=== PATIENT | female | born 1940 | race Caucasian/White ===

== ENCOUNTER 2017-06-09 16:51 | Outpatient (CLI) | payer MEDICARE, OTHER ==
[2017-06-09 17:53] LABS: Anion Gap 12 mmol/L (10-20); BUN (Urea Nitrogen) 14 mg/dL (9.8-20.1); Calc. Creatinine Clearance 0 mL/min (70-130); Calcium 9.6 mg/dL (7.8-10.44); Carbon Dioxide 26 mmol/L (23-31); Chloride 103 mmol/L (98-107); Estimated GFR-MDRD 63; Glucose 127 mg/dL (83-110); Potassium 3.7 mmol/L (3.5-5.1); Sodium 137 mmol/L (136-145)
== END 2017-06-09 16:52 | disposition home or self-care (01) ==
LOC: MADLAB 16:51
PROVIDERS: ATTEND Internal Medicine Cardiovascular Disease
DX: I10 Essential (primary) hypertension (principal)
CPT/HCPCS: 36415

== ENCOUNTER 2020-07-24 14:21 | Emergency (ER) | payer MEDICARE, BC, OTHER ==
--- NOTE | 2020-07-24 15:04 | RAD ---
Chest one view HISTORY: Fever. COMPARISON: 04/12/2019. FINDINGS: Cardiac silhouette is magnified by projection. Pulmonary vasculature is unremarkable. Mediastinum is midline with aortic calcification. No lobar consolidation or evidence of pneumothorax. Degenerative changes throughout the thoracic spine. IMPRESSION : No active cardiopulmonary abnormalities are demonstrated. Atherosclerosis.
[2020-07-24 15:32] LABS: Hemoglobin 13.2 g/dL (12.0-16.0); Mean Corpuscular Hemoglobin 30.7 pg (27.0-31.0); Mean Platelet Volume 8.4 fL (7.4-10.4); Platelet Count 185 thou/uL (130-400); RBC Distribution Width 11.6 % (11.5-14.5); Red Blood Cell (RBC) Count 4.28 mill/uL (4.20-5.40)
[2020-07-24 15:33] LABS: Band 23 % (5-11); MDiff Complete? YES; Monocytes 9 % (0-10); Neutrophil 64 % (42-75); Platelet Morphology Comment Appears Adequate; RBC Morphology Normal; Reactive Lymphocytes 4 % (0-10)
[2020-07-24 15:34] LABS: ALT (SGPT) 22 U/L (8-55); AST (SGOT) 24 U/L (5-34); Alkaline Phosphatase 56 U/L (40-110); Anion Gap 18 mmol/L (10-20); BUN (Urea Nitrogen) 15 mg/dL (9.8-20.1); Bilirubin, Total 0.8 mg/dL (0.2-1.2); Calc. Creatinine Clearance 0 mL/min (70-130); Calcium 8.5 mg/dL (7.8-10.44); Carbon Dioxide 17 mmol/L (23-31); Chloride 96 mmol/L (98-107); Estimated GFR-MDRD 44; Globulin 2.6 g/dL (2.4-3.5); Glucose 150 mg/dL (83-110); Potassium 3.6 mmol/L (3.5-5.1); Protein, Total 6.6 g/dL (6.0-8.3); Sodium 127 mmol/L (136-145)
[2020-07-24] MEDS ORDERED: Ondansetron PF 4 MG/2 ML Vial ONE (16:13)
[2020-07-24] MEDS ORDERED: Sodium Chloride 0.9% 1,000 ML ONE (16:13)
[2020-07-24] MEDS ORDERED: Loperamide HCl 2 MG CAP ONE ×2 (16:13→16:14)
[2020-07-25 14:05] LABS: SARS-CoV-2 MS2 Positive; SARS-CoV-2 N Gene Negative; SARS-CoV-2 S Gene Negative; SARS-CoV-2 by NAA Not Detected (NotDetected); SARS-CoV-2 orf1ab Negative
== END 2020-07-24 16:35 | disposition home or self-care (01) ==
LOC: MADERS 14:21
DX: R19.7 Diarrhea, unspecified (principal); R63.0 Anorexia; Z20.828 Contact with and (suspected) exposure to other viral communicable diseases; R11.2 Nausea with vomiting, unspecified; E78.5 Hyperlipidemia, unspecified; I10 Essential (primary) hypertension; Z79.899 Other long term (current) drug therapy
CPT/HCPCS: 71045; 80053; 85025; 86140; 96361; 96374; 99284; U0003; 87635; J2405; J7050

== ENCOUNTER 2020-07-27 16:35 | Emergency (ER) | payer MEDICARE, BC ==
[2020-07-27] MEDS ORDERED: Sodium Chloride 0.9% 1,000 ML ONE ×2 (17:25→19:19)
[2020-07-27] MEDS ORDERED: Diphenoxylate HCl/Atropine Tablet ONE (17:27)
[2020-07-27 18:13] LABS: ALT (SGPT) 31 U/L (8-55); AST (SGOT) 39 U/L (5-34); Albumin 3.9 g/dL (3.4-4.8); Alkaline Phosphatase 57 U/L (40-110); Anion Gap 17 mmol/L (10-20); BUN (Urea Nitrogen) 38 mg/dL (9.8-20.1); Calc. Creatinine Clearance 0 mL/min (70-130); Calcium 7.7 mg/dL (7.8-10.44); Carbon Dioxide 15 mmol/L (23-31); Chloride 83 mmol/L (98-107); Estimated GFR-MDRD 18; Globulin 2.6 g/dL (2.4-3.5); Glucose 135 mg/dL (83-110); Hemoglobin 13.9 g/dL (12.0-16.0); Lipase 5 U/L (8-78); Mean Corpuscular HGB CONC 34.5 g/dL (32.0-36.0); Mean Corpuscular Hemoglobin 30.2 pg (27.0-31.0); Mean Corpuscular Volume 87.6 fL (78.0-98.0); Platelet Count 187 thou/uL (130-400); Protein, Total 6.5 g/dL (6.0-8.3); RBC Distribution Width 10.8 % (11.5-14.5); Red Blood Cell (RBC) Count 4.61 mill/uL (4.20-5.40); White Blood Cell (WBC) Count 10.9 thou/uL (4.8-10.8)
[2020-07-27 18:14] LABS: Band 10 % (5-11); Lymphocytes 6 % (21-51); MDiff Complete? YES; Monocytes 16 % (0-10); Myelocyte 1 % (0-0); Platelet Morphology Comment Appears Adequate; RBC Morphology Normal; Reactive Lymphocytes 5 % (0-10)
[2020-07-27 18:19] LABS: Potassium 2.4 mmol/L (3.5-5.1); Sodium 113 mmol/L (136-145)
[2020-07-27] MEDS ORDERED: NS 0.9% w/ 40 MEQ KCL 1,000 ML IV ONE (18:44)
[2020-07-27] MEDS ORDERED: Sodium Chloride 0.9% 100 ML ONE (19:19)
[2020-07-27] MEDS ORDERED: Piperacillin/Tazobactam 4.5 GM VIAL ONE (19:19)
== END 2020-07-27 20:02 | disposition short-term general hospital (02) ==
LOC: MADERS 16:35
DX: E87.1 Hypo-osmolality and hyponatremia (principal); K52.9 Noninfective gastroenteritis and colitis, unspecified; E87.6 Hypokalemia; E78.5 Hyperlipidemia, unspecified; E03.9 Hypothyroidism, unspecified; I10 Essential (primary) hypertension; J44.9 Chronic obstructive pulmonary disease, unspecified; G47.30 Sleep apnea, unspecified; F17.210 Nicotine dependence, cigarettes, uncomplicated; Z79.51 Long term (current) use of inhaled steroids; Z79.899 Other long term (current) drug therapy
CPT/HCPCS: 80053; 83605; 83690; 84484; 85025; 86140; 94760; 96361; 96365; 96368; J2543; J3480; J3490; J7050

== ENCOUNTER 2020-07-31 16:47 | Inpatient (IN) | payer MEDICARE, BC ==
[2020-07-31] MEDS ORDERED: Acetaminophen 325 MG TAB PO PRN (20:32)
[2020-07-31] MEDS ORDERED: Ondansetron ODT 4 MG TAB PO PRN (20:32)
[2020-07-31] MEDS ORDERED: diphenhydrAMINE 25 MG CAP PO PRN ×2 (20:34→21:12)
[2020-07-31] MEDS ORDERED: cloNIDine 0.1 MG TAB PO PRN (20:34)
[2020-07-31] MEDS ORDERED: Acetaminophen 500 MG TAB PO PRN ×2 (20:34→21:15)
[2020-07-31] MEDS ORDERED: Non-Formulary Item 1 EACH (Ibandronate Sodium [Boniva] 150 MG) PO SCH (20:45)
[2020-07-31] MEDS ORDERED: Senokot 8.6 MG TAB PO PRN (21:09)
[2020-07-31] MEDS: Carvedilol 6.25 MG TAB PO SCH (21:48)
[2020-07-31] MEDS: CeleCOXIB 100 MG CAP PO SCH (21:48)
[2020-07-31] MEDS: DorzolamidE/Timolol 2%/0.5% Ophth Soln 10 ml Bottle L EYE SCH (21:48)
[2020-07-31] MEDS: prednisoLONE 1% Ophth Susp 5 ml Bottle L EYE SCH (21:49)
[2020-07-31] MEDS: Ondansetron ODT 4 MG TAB PO SCH (21:49)
[2020-08-01] MEDS: Ipratropium Bromide 2.5 ml Neb NEB SCH ×4 (00:16→18:01)
[2020-08-01] MEDS: Carvedilol 6.25 MG TAB PO SCH ×2 (09:19→20:50)
[2020-08-01] MEDS: Cholecalciferol 1,000 UNITS (25 MCG) TAB PO SCH (09:19)
[2020-08-01] MEDS: Calcium Carbonate 600 MG + Vit D TAB PO SCH (09:19)
[2020-08-01] MEDS: Amlodipine 5 MG TAB PO SCH (09:19)
[2020-08-01] MEDS: CeleCOXIB 100 MG CAP PO SCH ×2 (09:19→20:51)
[2020-08-01] MEDS: Atorvastatin Calcium 40 MG TAB PO SCH (09:19)
[2020-08-01] MEDS: Methimazole 5 MG TAB PO SCH (09:20)
[2020-08-01] MEDS: prednisoLONE 1% Ophth Susp 5 ml Bottle L EYE SCH ×4 (09:20→20:49)
[2020-08-01] MEDS: Potassium Chloride 10 MEQ TAB PO SCH (09:20)
[2020-08-01] MEDS: Ondansetron ODT 4 MG TAB PO SCH ×3 (09:20→20:51)
[2020-08-01] MEDS: DorzolamidE/Timolol 2%/0.5% Ophth Soln 10 ml Bottle L EYE SCH ×2 (09:20→20:50)
[2020-08-01] MEDS: Multivitamin W/ Minerals 1 TAB PO SCH (09:20)
[2020-08-01] MEDS: Clopidogrel Bisulfate 75 MG TAB PO SCH (09:20)
--- NOTE | 2020-08-01 10:26 | HP ---
PRIMARY CARE PHYSICIAN: Out of town. REASON FOR ADMISSION: For skilled rehabilitation at [facility] status post recent hospitalization for hyponatremia and severe diarrhea. HISTORY OF PRESENT ILLNESS: The patient is an 80-year-old female, who presented to the emergency room on the 27 of July due to persistent diarrhea, fatigue, and nausea. The patient does have a history of right leg fracture, and hyperthyroidism. The patient stated she had eye surgery a couple of days prior to admission and she had gone out to eat and she stated that the food did not taste right, so she went to see her PCP due to nausea, vomiting, and diarrhea, who prescribed Cipro for the diarrhea. The patient noted the diarrhea persisted and she continued to get extremely weak, so she went to the emergency room. In the emergency room, the patient was noted to have a sodium of 113. She was given IV fluids and admitted to the ICU for further workup. The patient did have stool cultures which were negative for C. diff, ova, and parasites, and it was noted diarrhea was most likely caused by Cipro rather than an infectious cause. The patient's sodium rapidly corrected to 127 the day after admission and IV fluid was changed to D5W to avoid over-correction and on the , her sodium improved to 132. The patient's sodium on the on the day of discharge from [place] in [place] was 131. She was noted to be very deconditioned and the decision was made for her to start physical therapy prior to discharge back to home. The patient in the hospital was also noted to have mildly elevated LFTs and this is to be repeated as an outpatient. During the hospitalization in [place], the patient reported one episode of mild possible dark stools. She states she had a colonoscopy done recently and did not note any abnormality. The patient denies any abdominal pain, nausea, vomiting, diarrhea, dizziness, or lightheadedness. She states last episode of diarrhea and vomiting was prior to hospital admission. The decision was made by the patient and her daughter to be transferred here to [facility] for physical therapy prior to discharge back to home. Upon evaluation of the patient today, she stated she was tired from transportation down to [place]. She is eager to go back to her home. She states prior to hospital admission, she was doing outpatient physical therapy in [facility], but she would like to continue that. She denies any chest pain, any shortness of breath, any palpitation, dizziness, any fever, any nausea or vomiting. PAST MEDICAL HISTORY: Hypertension, hyperthyroidism, mixed hyperlipidemia, sleep apnea, chronic obstructive pulmonary disease. PAST SURGICAL HISTORY: Aneurysm of the optic artery, post cholecystectomy, hysterectomy, bilateral carpal tunnel surgery, left ankle surgery, bilateral knee replacements, right ORIF, left lumpectomy of the breast, brain aneurysm clip, blindness of the right eye. CODE STATUS: The patient is a full code. SOCIAL HISTORY: The patient does not drink. She does smoke one pack of cigarettes daily. She denies any illicit drug use. She lives with her family. ALLERGIES: HYDROCHLOROTHIAZIDE AND CONTRAST IODINE. REVIEW OF SYSTEMS: GENERAL: The patient complains of mild weakness. CHEST: The patient denies any chest pain, shortness of breath, or palpitation. RESPIRATORY: Denies any cough or wheezing. GASTROINTESTINAL: Denies any nausea, vomiting, diarrhea, or constipation. NEUROLOGIC: The patient complains of weakness and gait instability. PSYCHIATRY: The patient denies any confusion, hallucinations, or delusion. SKIN: The patient denies any rashes. MEDICATIONS: 1. Amlodipine 5 mg daily. 2. Lipitor 40 daily. 3. Coreg 6.25 b.i.d. 4. Celebrex 200 b.i.d. 5. Vitamin D3 of 2000 units daily. 6. Clonidine 0.1 p.r.n. SBP greater than 180. 7. Plavix 75 daily. 8. Atrovent 2.5 neb q.6. 9. Multivitamin one daily. 10. Methimazole 10 daily. 11. Myrbetriq ER 50 mg q.p.m. 12. Protonix 40 daily. 13. Potassium chloride 5 mEq daily. 14. Prednisolone acetate 1% ophthalmic solution b.i.d. 15. Senokot 6 tabs p.o. at bedtime p.r.n. constipation. 16. Tylenol PM p.r.n. insomnia. PHYSICAL EXAMINATION: VITAL SIGNS: Temperature 98.6, pulse 75, respiration 19, O2 saturation 94% on room air, blood pressure 130/74. GENERAL: The patient is alert, awake, and oriented x3. No apparent distress, lying comfortably in bed. HEENT: Normocephalic, atraumatic. Pupils are equal, round, reactive. Extraocular movement intact. Nonicteric sclerae. Well-injected conjunctivae. Oral mucous membrane is moist. Nasal mucosa normal. NECK: Supple. No JVD. No adenopathy. Thyroid is palpable, midline. Trachea is midline. No supraclavicular lymphadenopathy. HEART: S1, S2 regular. No murmurs, no gallops, no friction rub. LUNGS: Clear to auscultation bilaterally. No wheezing, no rhonchi, no crackles. ABDOMEN: Positive bowel sounds. Nontender and nondistended. EXTREMITIES: No edema. No cyanosis. NEURO: Cranial nerves 2 through 12 grossly intact. ASSESSMENT: 1. Physical deconditioning. 2. Hyponatremia secondary to diarrhea. 3. Acute kidney injury, improving. 4. Hypertension. 5. Gait instability. PLAN: The patient is an 80-year-old female, who is being admitted to [facility] for skilled rehabilitation secondary to hyponatremia due to severe diarrhea. We will consult Physical Therapy to help with strengthening and gait and will consult Occupational Therapy to help with activities of daily living prior to discharge back to home. We will repeat CBC and CMP in a week. We will resume home medications. We will monitor the patient closely for any GI bleed or dark stools. We will place the patient on Protonix for GI prophylaxis and SCD for DVT prophylaxis. Estimated length of stay is 1 to 2 weeks. Job ID: [id number] [facility]
[2020-08-02] MEDS: Ipratropium Bromide 2.5 ml Neb NEB SCH ×4 (00:47→17:16)
[2020-08-02] MEDS: Methimazole 5 MG TAB PO SCH (08:09)
[2020-08-02] MEDS: Cholecalciferol 1,000 UNITS (25 MCG) TAB PO SCH (08:09)
[2020-08-02] MEDS: Calcium Carbonate 600 MG + Vit D TAB PO SCH (08:10)
[2020-08-02] MEDS: Potassium Chloride 10 MEQ TAB PO SCH (08:10)
[2020-08-02] MEDS: Clopidogrel Bisulfate 75 MG TAB PO SCH (08:10)
[2020-08-02] MEDS: Amlodipine 5 MG TAB PO SCH (08:10)
[2020-08-02] MEDS: Carvedilol 6.25 MG TAB PO SCH ×2 (08:11→20:14)
[2020-08-02] MEDS: CeleCOXIB 100 MG CAP PO SCH ×2 (08:11→20:13)
[2020-08-02] MEDS: Atorvastatin Calcium 40 MG TAB PO SCH (08:11)
[2020-08-02] MEDS: Ondansetron ODT 4 MG TAB PO SCH ×3 (08:11→20:14)
[2020-08-02] MEDS: Multivitamin W/ Minerals 1 TAB PO SCH (08:11)
[2020-08-02] MEDS: DorzolamidE/Timolol 2%/0.5% Ophth Soln 10 ml Bottle L EYE SCH ×2 (08:12→20:15)
[2020-08-02] MEDS: prednisoLONE 1% Ophth Susp 5 ml Bottle L EYE SCH ×4 (08:13→20:16)
[2020-08-02] MEDS: DEXILANT 60 MG PO SCH (09:30)
[2020-08-02 12:54] VITALS: BMI 26.9
[2020-08-03] MEDS: Ipratropium Bromide 2.5 ml Neb NEB SCH ×3 (00:12→12:57)
[2020-08-03 05:38] LABS: #Basophils 0.1 thou/uL (0.0-0.2); #Eosinphils 0.3 thou/uL (0.0-0.7); #Monocytes 1.4 thou/uL (0.11-0.59); #Neutrophils 9.4 thou/uL (1.40-6.50); %Basophils 0.8 % (0.0-1.0); %Eosinophils 2.4 % (0.0-10.0); %Monocytes 9.7 % (0.0-10.0); %Neutrophils 66.1 % (42.0-75.0); Hemoglobin 10.1 g/dL (12.0-16.0); Mean Corpuscular Hemoglobin 31.2 pg (27.0-31.0); Mean Corpuscular Volume 91.7 fL (78.0-98.0); Mean Platelet Volume 5.9 fL (7.4-10.4); Platelet Count 248 thou/uL (130-400); RBC Distribution Width 12.8 % (11.5-14.5); Red Blood Cell (RBC) Count 3.25 mill/uL (4.20-5.40); White Blood Cell (WBC) Count 14.2 thou/uL (4.8-10.8)
[2020-08-03 05:55] LABS: ALT (SGPT) 26 U/L (8-55); AST (SGOT) 16 U/L (5-34); Albumin 3.1 g/dL (3.4-4.8); Alkaline Phosphatase 50 U/L (40-110); Anion Gap 11 mmol/L (10-20); BUN (Urea Nitrogen) 8 mg/dL (9.8-20.1); Bilirubin, Total 0.6 mg/dL (0.2-1.2); Calc. Creatinine Clearance 75 mL/min (70-130); Calcium 8.4 mg/dL (7.8-10.44); Carbon Dioxide 24 mmol/L (23-31); Chloride 104 mmol/L (98-107); Estimated GFR-MDRD 80; Globulin 1.8 g/dL (2.4-3.5); Glucose 95 mg/dL (83-110); Protein, Total 4.9 g/dL (6.0-8.3); Sodium 135 mmol/L (136-145)
[2020-08-03 07:43] VITALS: BP 122/52; TEMP 98.1
[2020-08-03] MEDS: Amlodipine 5 MG TAB PO SCH (08:24)
[2020-08-03] MEDS: CeleCOXIB 100 MG CAP PO SCH (08:24)
[2020-08-03] MEDS: Cholecalciferol 1,000 UNITS (25 MCG) TAB PO SCH (08:25)
[2020-08-03] MEDS: Calcium Carbonate 600 MG + Vit D TAB PO SCH (08:26)
[2020-08-03] MEDS: Clopidogrel Bisulfate 75 MG TAB PO SCH (08:26)
[2020-08-03] MEDS: Potassium Chloride 10 MEQ TAB PO SCH (08:26)
[2020-08-03] MEDS: Multivitamin W/ Minerals 1 TAB PO SCH (08:27)
[2020-08-03] MEDS: Ondansetron ODT 4 MG TAB PO SCH (08:27)
[2020-08-03] MEDS: Methimazole 5 MG TAB PO SCH (08:27)
[2020-08-03] MEDS: Atorvastatin Calcium 40 MG TAB PO SCH (08:28)
[2020-08-03] MEDS: Carvedilol 6.25 MG TAB PO SCH (08:28)
[2020-08-03] MEDS: prednisoLONE 1% Ophth Susp 5 ml Bottle L EYE SCH ×2 (08:31→12:58)
[2020-08-03] MEDS: DorzolamidE/Timolol 2%/0.5% Ophth Soln 10 ml Bottle L EYE SCH (08:31)
[2020-08-03] MEDS: DEXILANT 60 MG PO SCH (10:04)
--- NOTE | 2020-08-04 03:57 | DIS ---
DATE OF ADMISSION: 07/31/2020 DATE OF DISCHARGE: 08/03/2020 DISCHARGING PHYSICIAN: Keven Ojeda MD DISCHARGE DIAGNOSES: 1. Physical deconditioning, improved. 2. Hyponatremia, resolved. 3. Transaminitis, resolved. 4. Acute kidney injury, improved. 5. Gait instability, improving. DISCHARGE DISPOSITION: Back to home with her family. DISCHARGE ACTIVITIES: Follow up with primary care physician within 1 week. The patient to have a CBC repeated within 1 week. The patient to resume physical therapy at [facility]. The patient to ambulate with a 4-wheeled walker at all times. BRIEF HOSPITAL COURSE: Ms. Castellanos is an 80-year-old female, who was admitted to [place] in [facility] on July 27 due to persistent diarrhea, nausea, and fatigue. The patient was noted to have a sodium of 113. In the emergency room, she was given IV fluids and admitted to the ICU for further workup. The patient's diarrhea and nausea resolved during hospitalization and her sodium on date of discharge in [place] was 131. Due to condition, patient was physically deconditioned with a slow gait and the decision was made to transfer the patient to skilled rehab for physical therapy prior to discharge back to home. Upon admission here on the 31 of July, the patient was able to be evaluated by Physical Therapy and Occupational Therapy. She stated that prior to hospitalization, she was able to ambulate without a walker or a cane and now she is using a walker for safety reasons. The patient was seen here throughout and participated in physical therapy. She slowly improved. On day of discharge on August 03, she was able to ambulate 300 foot with a rolling walker. She was making significant progress but working towards the goals for a safe return home. Patient had voiced since the day of admission that she wanted to be discharged home and continue therapy as an outpatient as she was doing prior to hospitalization. On day of discharge, August 03, sodium had increased to 135. Kidney function was much better. BUN of 8, creatinine of 0.7, GFR of 80. Her liver enzymes were back to normal and WBC was unfortunately 14.2, hemoglobin 10.1, and hematocrit of 29.7. The patient denies any acute GI bleeding, dark stools, or any form of bleeding. The patient was adamant that she wanted to go home today the and she was discharged home with her family in a stable condition. The patient was noted to notify her PCP to get a CBC done within 1 week. DISCHARGE VITAL SIGNS: Temperature 98.1, pulse 95, respirations 18, O2 saturation 96% on room air, blood pressure 122/52. Job ID: [id number] MTDD
== END 2020-08-03 15:50 | disposition home or self-care (01) | DRG 641 ==
LOC: MADMS 16:47
PROVIDERS: ADMIT Family Medicine; ATTEND Family Medicine
DX: E87.1 Hypo-osmolality and hyponatremia (principal); N17.9 Acute kidney failure, unspecified; R53.81 Other malaise; R19.7 Diarrhea, unspecified; E05.90 Thyrotoxicosis, unspecified without thyrotoxic crisis or storm; I10 Essential (primary) hypertension; F17.210 Nicotine dependence, cigarettes, uncomplicated; J44.9 Chronic obstructive pulmonary disease, unspecified; E78.2 Mixed hyperlipidemia; G47.30 Sleep apnea, unspecified; R26.9 Unspecified abnormalities of gait and mobility; Z96.653 Presence of artificial knee joint, bilateral; Z90.49 Acquired absence of other specified parts of digestive tract; Z98.890 Other specified postprocedural states; Z88.8 Allergy status to other drugs, medicaments and biological substances; Z79.899 Other long term (current) drug therapy; Z79.01 Long term (current) use of anticoagulants
CPT/HCPCS: 80053; 85025; 94640; Q0162

== ENCOUNTER 2020-08-13 10:22 | Outpatient (CLI) | payer MEDICARE, BC | END 2020-08-13 10:23 | disposition home or self-care (01) | LOC: MADLAB 10:22 | PROVIDERS: ATTEND Internal Medicine Cardiovascular Disease | DX: E78.00 Pure hypercholesterolemia, unspecified (principal) | CPT/HCPCS: 36415; 80061 ==

== ENCOUNTER 2022-09-06 19:27 | Emergency (ER) | payer OTHER, BC ==
[~2022-09-06 19:27] MED LIST: Sodium Chloride 0.9% 500 ML BAG ONE
[2022-09-06 20:22] LABS: #Eosinphils 0.1 thou/uL (0.0-0.7); #Lymphocytes 0.5 thou/uL (1.20-3.40); #Monocytes 0.5 thou/uL (0.11-0.59); #Neutrophils 10.9 thou/uL (1.40-6.50); %Basophils 0.2 % (0.0-1.0); %Eosinophils 0.5 % (0.0-10.0); %Lymphocytes 4.3 % (21.0-51.0); %Monocytes 3.9 % (0.0-10.0); %Neutrophils 91.1 % (42.0-75.0); Hemoglobin 13.1 g/dL (12.0-16.0); Mean Corpuscular HGB CONC 33.5 g/dL (32.0-36.0); Mean Corpuscular Hemoglobin 32.4 pg (27.0-31.0); Mean Corpuscular Volume 96.7 fL (78.0-98.0); Platelet Count 200 thou/uL (130-400); RBC Distribution Width 12.4 % (11.5-14.5); Red Blood Cell (RBC) Count 4.05 mill/uL (4.20-5.40); White Blood Cell (WBC) Count 11.9 thou/uL (4.8-10.8)
[2022-09-06] MEDS ORDERED: Ondansetron PF 4 MG/2 ML Vial ONE (20:23)
[2022-09-06 20:42] LABS: ALT (SGPT) 21 U/L (8-55); AST (SGOT) 24 U/L (5-34); Albumin 3.8 g/dL (3.4-4.8); Alkaline Phosphatase 46 U/L (40-110); Anion Gap 10 mmol/L (10-20); BUN (Urea Nitrogen) 12 mg/dL (9.8-20.1); Bilirubin, Total 0.7 mg/dL (0.2-1.2); Calc. Creatinine Clearance 0 mL/min (70-130); Calcium 8.6 mg/dL (7.8-10.44); Carbon Dioxide 24 mmol/L (23-31); Chloride 101 mmol/L (98-107); Estimated GFR 86; Globulin 2.5 g/dL (2.4-3.5); Glucose 126 mg/dL (83-110); Lipase 11 U/L (8-78); Magnesium 1.7 mg/dL (1.6-2.6); Potassium 3.8 mmol/L (3.5-5.1); Protein, Total 6.3 g/dL (5.8-8.1); Sodium 131 mmol/L (136-145)
[2022-09-06 22:11] LABS: Bilirubin Negative (Negative); Blood, Urine Negative (Negative); Clarity Clear (Clear); Glucose, Urine (Dipstick) Negative (Negative); Ketone, Urine 40 mg/dL (Negative); Leukocyte Trace (Negative); Nitrite Negative (Negative); Protein, Urine (Dipstick) Negative (Neg-Trace); Urobilinogen 0.2 mg/dL (Less than 2); pH, Urine 6.5 (5.0-9.0)
[2022-09-06 22:14] LABS: Squamous Epithelial 0-3 HPF (0-3)
== END 2022-09-06 22:42 | disposition home or self-care (01) ==
LOC: MADERS 19:27
DX: A08.4 Viral intestinal infection, unspecified (principal); I10 Essential (primary) hypertension; E05.90 Thyrotoxicosis, unspecified without thyrotoxic crisis or storm; E78.5 Hyperlipidemia, unspecified; G47.30 Sleep apnea, unspecified; J44.9 Chronic obstructive pulmonary disease, unspecified; F17.210 Nicotine dependence, cigarettes, uncomplicated; Z79.899 Other long term (current) drug therapy
CPT/HCPCS: 80053; 81003; 81015; 83690; 83735; 83880; 85025; 87086; 93005; 96374; J2405; J7030

== ENCOUNTER 2023-04-24 18:18 | Inpatient (IN) | payer MEDICARE, BC ==
[2023-04-24] MEDS ORDERED: diphenhydrAMINE 25 MG CAP PO PRN (20:37)
[2023-04-24] MEDS ORDERED: cloNIDine 0.1 MG TAB PO PRN (20:37)
[2023-04-24] MEDS ORDERED: Acetaminophen 650 MG Suppository PR PRN (20:43)
[2023-04-24] MEDS: Sodium Chloride 1 GM TAB PO SCH (21:29)
[2023-04-24] MEDS: CeleCOXIB 100 MG CAP PO SCH (21:29)
[2023-04-24] MEDS: Carvedilol 3.125 MG TAB PO SCH (21:30)
[2023-04-24] MEDS: Zolpidem Tartrate 5 MG TAB PO PRN (21:40)
[2023-04-24] MEDS: HYDROcodone/Acetaminophen 5/325 mg Tablet PO PRN (21:40)
[2023-04-24] MEDS: Exemestane 25 MG TAB PO SCH (21:52)
[2023-04-24] MEDS: Ipratropium/Albuterol 3 ML NEB NEB SCH (23:49)
[2023-04-25] MEDS: Ipratropium/Albuterol 3 ML NEB NEB SCH ×4 (05:22→23:12)
[2023-04-25] MEDS ORDERED: Ipratropium Bromide 2.5 ml Neb NEB SCH (06:00)
[2023-04-25] MEDS: Methimazole 5 MG TAB PO SCH (08:24)
[2023-04-25] MEDS: Gabapentin 300 MG CAP PO SCH (08:24)
[2023-04-25] MEDS: Sodium Chloride 1 GM TAB PO SCH ×3 (08:24→20:53)
[2023-04-25] MEDS: Multivitamin W/ Minerals 1 TAB PO SCH (08:25)
[2023-04-25] MEDS: Atorvastatin Calcium 40 MG TAB PO SCH (08:25)
[2023-04-25] MEDS: CeleCOXIB 100 MG CAP PO SCH ×2 (08:25→20:53)
[2023-04-25] MEDS: Clopidogrel Bisulfate 75 MG TAB PO SCH (08:25)
[2023-04-25] MEDS: Lisinopril 20 MG TAB PO SCH (08:26)
[2023-04-25] MEDS: Calcium Carbonate 600 MG + Vit D TAB PO SCH (08:26)
[2023-04-25] MEDS: Escitalopram Oxalate 10 mg Tablet PO SCH (08:26)
[2023-04-25] MEDS: Lidocaine 4% Patch TD SCH (08:26)
[2023-04-25] MEDS: Cholecalciferol 1,000 UNITS (25 MCG) TAB PO SCH (08:26)
[2023-04-25] MEDS: Carvedilol 3.125 MG TAB PO SCH ×2 (08:26→20:53)
[2023-04-25] MEDS: HYDROcodone/Acetaminophen 5/325 mg Tablet PO PRN ×2 (13:09→21:58)
[2023-04-25] MEDS: Exemestane 25 MG TAB PO SCH (20:55)
[2023-04-25] MEDS: Zolpidem Tartrate 5 MG TAB PO PRN (21:57)
[2023-04-26] MEDS: Ipratropium/Albuterol 3 ML NEB NEB SCH ×4 (05:06→23:44)
[2023-04-26] MEDS: traMADol HCl 50 MG TAB PO PRN ×2 (05:07→11:57)
[2023-04-26] MEDS: Multivitamin W/ Minerals 1 TAB PO SCH (09:15)
[2023-04-26] MEDS: Atorvastatin Calcium 40 MG TAB PO SCH (09:15)
[2023-04-26] MEDS: Carvedilol 3.125 MG TAB PO SCH ×2 (09:15→20:14)
[2023-04-26] MEDS: Methimazole 5 MG TAB PO SCH (09:15)
[2023-04-26] MEDS: Clopidogrel Bisulfate 75 MG TAB PO SCH (09:15)
[2023-04-26] MEDS: Escitalopram Oxalate 10 mg Tablet PO SCH (09:16)
[2023-04-26] MEDS: CeleCOXIB 100 MG CAP PO SCH ×2 (09:16→20:15)
[2023-04-26] MEDS: Lisinopril 20 MG TAB PO SCH (09:17)
[2023-04-26] MEDS: Gabapentin 300 MG CAP PO SCH (09:17)
[2023-04-26] MEDS: Sodium Chloride 1 GM TAB PO SCH ×3 (09:17→20:14)
[2023-04-26] MEDS: Calcium Carbonate 600 MG + Vit D TAB PO SCH (09:19)
[2023-04-26] MEDS: Cholecalciferol 1,000 UNITS (25 MCG) TAB PO SCH (09:19)
[2023-04-26] MEDS: Lidocaine 4% Patch TD SCH (09:26)
[2023-04-26] MEDS: Bisacodyl 5 MG TAB PO PRN (11:57)
[2023-04-26] MEDS ORDERED: traMADol HCl 50 MG TAB PO PRN (11:58)
[2023-04-26] MEDS: Acetaminophen 325 MG TAB PO PRN (12:16)
[2023-04-26] MEDS: Ondansetron ODT 4 MG TAB PO PRN (14:41)
[2023-04-26] MEDS: HYDROcodone/Acetaminophen 5/325 mg Tablet PO PRN (20:14)
[2023-04-26] MEDS: Zolpidem Tartrate 5 MG TAB PO PRN (20:15)
[2023-04-26] MEDS: Exemestane 25 MG TAB PO SCH (20:16)
[2023-04-27] MEDS: Ipratropium/Albuterol 3 ML NEB NEB SCH ×4 (05:35→23:42)
[2023-04-27] MEDS: CeleCOXIB 100 MG CAP PO SCH ×2 (08:26→20:03)
[2023-04-27] MEDS: Calcium Carbonate 600 MG + Vit D TAB PO SCH (08:27)
[2023-04-27] MEDS: Cholecalciferol 1,000 UNITS (25 MCG) TAB PO SCH (08:27)
[2023-04-27] MEDS: Carvedilol 3.125 MG TAB PO SCH ×2 (08:27→20:04)
[2023-04-27] MEDS: Lisinopril 20 MG TAB PO SCH (08:27)
[2023-04-27] MEDS: Sodium Chloride 1 GM TAB PO SCH ×3 (08:27→20:04)
[2023-04-27] MEDS: Methimazole 5 MG TAB PO SCH (08:28)
[2023-04-27] MEDS: Escitalopram Oxalate 10 mg Tablet PO SCH (08:29)
[2023-04-27] MEDS: Multivitamin W/ Minerals 1 TAB PO SCH (08:29)
[2023-04-27] MEDS: Atorvastatin Calcium 40 MG TAB PO SCH (08:29)
[2023-04-27] MEDS: Clopidogrel Bisulfate 75 MG TAB PO SCH (08:29)
[2023-04-27] MEDS: Polyethylene Glycol 3350 17 GM Packet PO SCH (08:30)
[2023-04-27] MEDS: Gabapentin 300 MG CAP PO SCH (08:30)
[2023-04-27] MEDS: Lidocaine 4% Patch TD SCH (08:30)
[2023-04-27] MEDS: Ondansetron ODT 4 MG TAB PO PRN (17:35)
[2023-04-27] MEDS: Bisacodyl 5 MG TAB PO PRN (17:35)
[2023-04-27] MEDS: Exemestane 25 MG TAB PO SCH ×2 (20:05→20:09)
[2023-04-27] MEDS: Zolpidem Tartrate 5 MG TAB PO PRN (21:32)
[2023-04-27] MEDS: HYDROcodone/Acetaminophen 5/325 mg Tablet PO PRN (21:32)
[2023-04-28 05:19] LABS: #Basophils 0.1 thou/uL (0.0-0.2); #Eosinphils 0.5 thou/uL (0.0-0.7); #Lymphocytes 2.4 thou/uL (1.20-3.40); #Monocytes 0.9 thou/uL (0.11-0.59); %Basophils 0.9 % (0.0-1.0); %Eosinophils 4.3 % (0.0-10.0); %Monocytes 7.5 % (0.0-10.0); %Neutrophils 67.3 % (42.0-75.0); Hemoglobin 8.6 g/dL (12.0-16.0); Mean Corpuscular HGB CONC 33.4 g/dL (32.0-36.0); Mean Corpuscular Hemoglobin 33.1 pg (27.0-31.0); Mean Corpuscular Volume 99.2 fl (78.0-98.0); Mean Platelet Volume 7.3 fL (7.4-10.4); Platelet Count 242 10x3/uL (130-400); RBC Distribution Width 14.5 % (11.5-14.5); White Blood Cell (WBC) Count 11.9 10x3/uL (4.8-10.8)
[2023-04-28] MEDS: Ipratropium/Albuterol 3 ML NEB NEB SCH ×3 (05:23→17:57)
[2023-04-28 05:38] LABS: ALT (SGPT) 11 U/L (8-55); AST (SGOT) 15 U/L (5-34); Albumin 3.1 g/dL (3.4-4.8); Alkaline Phosphatase 89 U/L (40-110); Anion Gap 9 mmol/L (10-20); BUN (Urea Nitrogen) 27 mg/dL (9.8-20.1); Bilirubin, Total 0.9 mg/dL (0.2-1.2); Calc. Creatinine Clearance 56 mL/min (70-130); Calcium 9.2 mg/dL (7.8-10.44); Carbon Dioxide 24 mmol/L (23-31); Chloride 106 mmol/L (98-107); Estimated GFR 75; Globulin 1.9 g/dL (2.4-3.5); Glucose 100 mg/dL (83-110); Potassium 5.2 mmol/L (3.5-5.1); Sodium 134 mmol/L (136-145)
[2023-04-28] MEDS: Polyethylene Glycol 3350 17 GM Packet PO SCH (09:00)
[2023-04-28] MEDS: Sodium Chloride 1 GM TAB PO SCH ×3 (09:00→21:50)
[2023-04-28] MEDS: Gabapentin 300 MG CAP PO SCH (09:00)
[2023-04-28] MEDS: Lidocaine 4% Patch TD SCH (09:00)
[2023-04-28] MEDS: Cholecalciferol 1,000 UNITS (25 MCG) TAB PO SCH (09:01)
[2023-04-28] MEDS: Methimazole 5 MG TAB PO SCH (09:01)
[2023-04-28] MEDS: Carvedilol 3.125 MG TAB PO SCH ×2 (09:01→21:50)
[2023-04-28] MEDS: Escitalopram Oxalate 10 mg Tablet PO SCH (09:02)
[2023-04-28] MEDS: Atorvastatin Calcium 40 MG TAB PO SCH (09:02)
[2023-04-28] MEDS: Clopidogrel Bisulfate 75 MG TAB PO SCH (09:03)
[2023-04-28] MEDS: CeleCOXIB 100 MG CAP PO SCH ×2 (09:03→21:51)
[2023-04-28] MEDS: Calcium Carbonate 600 MG + Vit D TAB PO SCH (09:03)
[2023-04-28] MEDS: Multivitamin W/ Minerals 1 TAB PO SCH (09:03)
[2023-04-28] MEDS: Lisinopril 20 MG TAB PO SCH (09:04)
[2023-04-28] MEDS: Exemestane 25 MG TAB PO SCH (21:51)
[2023-04-28] MEDS: Bisacodyl 5 MG TAB PO PRN (21:52)
[2023-04-28] MEDS: HYDROcodone/Acetaminophen 5/325 mg Tablet PO PRN (21:52)
[2023-04-28] MEDS: Zolpidem Tartrate 5 MG TAB PO PRN (21:52)
[2023-04-29] MEDS: Ipratropium/Albuterol 3 ML NEB NEB SCH ×4 (00:20→17:44)
[2023-04-29] MEDS: Lidocaine 4% Patch TD SCH (09:37)
[2023-04-29] MEDS: Gabapentin 300 MG CAP PO SCH (09:38)
[2023-04-29] MEDS: Sodium Chloride 1 GM TAB PO SCH ×3 (09:38→20:46)
[2023-04-29] MEDS: Calcium Carbonate 600 MG + Vit D TAB PO SCH (09:38)
[2023-04-29] MEDS: Polyethylene Glycol 3350 17 GM Packet PO SCH (09:38)
[2023-04-29] MEDS: Lisinopril 20 MG TAB PO SCH (09:38)
[2023-04-29] MEDS: Cholecalciferol 1,000 UNITS (25 MCG) TAB PO SCH (09:39)
[2023-04-29] MEDS: Methimazole 5 MG TAB PO SCH (09:39)
[2023-04-29] MEDS: Escitalopram Oxalate 10 mg Tablet PO SCH (09:39)
[2023-04-29] MEDS: CeleCOXIB 100 MG CAP PO SCH ×2 (09:42→20:47)
[2023-04-29] MEDS: Carvedilol 3.125 MG TAB PO SCH ×2 (09:42→20:49)
[2023-04-29] MEDS: Clopidogrel Bisulfate 75 MG TAB PO SCH (09:42)
[2023-04-29] MEDS: Atorvastatin Calcium 40 MG TAB PO SCH (09:42)
[2023-04-29] MEDS: Multivitamin W/ Minerals 1 TAB PO SCH (10:08)
[2023-04-29] MEDS: Fleet Saline Enema 133 ML BOT PR PRN (10:57)
[2023-04-29] MEDS: Exemestane 25 MG TAB PO SCH (20:48)
[2023-04-30] MEDS: Ipratropium/Albuterol 3 ML NEB NEB SCH ×4 (00:20→17:29)
[2023-04-30] MEDS: Zolpidem Tartrate 5 MG TAB PO PRN (00:58)
[2023-04-30] MEDS: HYDROcodone/Acetaminophen 5/325 mg Tablet PO PRN ×2 (00:58→07:44)
[2023-04-30] MEDS: CeleCOXIB 100 MG CAP PO SCH ×2 (08:54→20:34)
[2023-04-30] MEDS: Sodium Chloride 1 GM TAB PO SCH ×3 (08:54→20:34)
[2023-04-30] MEDS: Methimazole 5 MG TAB PO SCH (08:55)
[2023-04-30] MEDS: Clopidogrel Bisulfate 75 MG TAB PO SCH (08:55)
[2023-04-30] MEDS: Lisinopril 20 MG TAB PO SCH (08:55)
[2023-04-30] MEDS: Multivitamin W/ Minerals 1 TAB PO SCH (08:55)
[2023-04-30] MEDS: Cholecalciferol 1,000 UNITS (25 MCG) TAB PO SCH (08:55)
[2023-04-30] MEDS: Atorvastatin Calcium 40 MG TAB PO SCH (08:55)
[2023-04-30] MEDS: Carvedilol 3.125 MG TAB PO SCH ×2 (08:55→20:35)
[2023-04-30] MEDS: Calcium Carbonate 600 MG + Vit D TAB PO SCH (08:55)
[2023-04-30] MEDS: Gabapentin 300 MG CAP PO SCH (08:55)
[2023-04-30] MEDS: Escitalopram Oxalate 10 mg Tablet PO SCH (08:55)
[2023-04-30] MEDS: Lidocaine 4% Patch TD SCH (08:59)
[2023-04-30] MEDS: Polyethylene Glycol 3350 17 GM Packet PO SCH (08:59)
[2023-04-30] MEDS: Bisacodyl 5 MG TAB PO PRN (17:29)
[2023-04-30] MEDS: Fleet Saline Enema 133 ML BOT PR PRN (19:15)
[2023-04-30] MEDS: Acetaminophen 325 MG TAB PO PRN (19:33)
[2023-04-30] MEDS: Exemestane 25 MG TAB PO SCH (20:34)
[2023-04-30] MEDS: Megestrol Acetate 40 MG TAB PO SCH (20:35)
[2023-05-01] MEDS: Ipratropium/Albuterol 3 ML NEB NEB SCH ×5 (00:08→22:54)
[2023-05-01] MEDS: Lantiseptic Ointment 130 GM JAR TOP SCH ×3 (05:25→20:54)
[2023-05-01] MEDS: Cholecalciferol 1,000 UNITS (25 MCG) TAB PO SCH (09:04)
[2023-05-01] MEDS: Clopidogrel Bisulfate 75 MG TAB PO SCH (09:05)
[2023-05-01] MEDS: Calcium Carbonate 600 MG + Vit D TAB PO SCH (09:05)
[2023-05-01] MEDS: Multivitamin W/ Minerals 1 TAB PO SCH (09:06)
[2023-05-01] MEDS: CeleCOXIB 100 MG CAP PO SCH ×2 (09:06→20:50)
[2023-05-01] MEDS: Carvedilol 3.125 MG TAB PO SCH ×2 (09:07→20:52)
[2023-05-01] MEDS: Atorvastatin Calcium 40 MG TAB PO SCH (09:07)
[2023-05-01] MEDS: Escitalopram Oxalate 10 mg Tablet PO SCH (09:07)
[2023-05-01] MEDS: Sodium Chloride 1 GM TAB PO SCH ×3 (09:07→20:52)
[2023-05-01] MEDS: Methimazole 5 MG TAB PO SCH (09:07)
[2023-05-01] MEDS: Polyethylene Glycol 3350 17 GM Packet PO SCH (09:08)
[2023-05-01] MEDS: Megestrol Acetate 40 MG TAB PO SCH ×2 (09:11→20:50)
[2023-05-01] MEDS: Lidocaine 4% Patch TD SCH (09:13)
[2023-05-01] MEDS: Gabapentin 300 MG CAP PO SCH (09:22)
[2023-05-01] MEDS: Bisacodyl 5 MG TAB PO PRN (17:42)
[2023-05-01] MEDS: Bisacodyl 10 MG SUPP PR PRN (17:50)
[2023-05-01] MEDS: Lisinopril 20 MG TAB PO SCH (20:51)
[2023-05-01] MEDS: Exemestane 25 MG TAB PO SCH (20:52)
[2023-05-01] MEDS: Zolpidem Tartrate 5 MG TAB PO PRN (22:54)
[2023-05-02] MEDS: Ipratropium/Albuterol 3 ML NEB NEB SCH ×4 (05:43→22:59)
[2023-05-02] MEDS: CeleCOXIB 100 MG CAP PO SCH ×2 (08:32→21:19)
[2023-05-02] MEDS: Lidocaine 4% Patch TD SCH (08:32)
[2023-05-02] MEDS: Polyethylene Glycol 3350 17 GM Packet PO SCH (08:32)
[2023-05-02] MEDS: Carvedilol 3.125 MG TAB PO SCH ×2 (08:33→21:21)
[2023-05-02] MEDS: Methimazole 5 MG TAB PO SCH (08:33)
[2023-05-02] MEDS: Sodium Chloride 1 GM TAB PO SCH ×3 (08:33→21:18)
[2023-05-02] MEDS: Cholecalciferol 1,000 UNITS (25 MCG) TAB PO SCH ×2 (08:34→08:36)
[2023-05-02] MEDS: Calcium Carbonate 600 MG + Vit D TAB PO SCH (08:34)
[2023-05-02] MEDS: Megestrol Acetate 40 MG TAB PO SCH ×2 (08:34→21:19)
[2023-05-02] MEDS: Atorvastatin Calcium 40 MG TAB PO SCH (08:34)
[2023-05-02] MEDS: Clopidogrel Bisulfate 75 MG TAB PO SCH (08:34)
[2023-05-02] MEDS: Gabapentin 300 MG CAP PO SCH (08:35)
[2023-05-02] MEDS: Escitalopram Oxalate 10 mg Tablet PO SCH (08:35)
[2023-05-02] MEDS: Lantiseptic Ointment 130 GM JAR TOP SCH ×2 (08:36→21:21)
[2023-05-02] MEDS: Multivitamin W/ Minerals 1 TAB PO SCH (08:37)
[2023-05-02] MEDS ORDERED: Docusate 100 MG CAP PO SCH (09:00)
[2023-05-02] MEDS: Senokot S 8.6-50 MG TAB PO SCH (21:18)
[2023-05-02] MEDS: Exemestane 25 MG TAB PO SCH (21:19)
[2023-05-02] MEDS: Lisinopril 20 MG TAB PO SCH (21:20)
[2023-05-02] MEDS: Bisacodyl 10 MG SUPP PR PRN (21:21)
[2023-05-03] MEDS: Ipratropium/Albuterol 3 ML NEB NEB SCH ×3 (05:00→17:57)
[2023-05-03] MEDS: Senokot S 8.6-50 MG TAB PO SCH ×2 (08:21→21:24)
[2023-05-03] MEDS: Clopidogrel Bisulfate 75 MG TAB PO SCH (08:21)
[2023-05-03] MEDS: Calcium Carbonate 600 MG + Vit D TAB PO SCH (08:21)
[2023-05-03] MEDS: Multivitamin W/ Minerals 1 TAB PO SCH (08:21)
[2023-05-03] MEDS: CeleCOXIB 100 MG CAP PO SCH ×2 (08:22→21:24)
[2023-05-03] MEDS: Polyethylene Glycol 3350 17 GM Packet PO SCH ×2 (08:23→08:33)
[2023-05-03] MEDS: Atorvastatin Calcium 40 MG TAB PO SCH (08:23)
[2023-05-03] MEDS: Gabapentin 300 MG CAP PO SCH (08:23)
[2023-05-03] MEDS: Sodium Chloride 1 GM TAB PO SCH ×3 (08:24→21:23)
[2023-05-03] MEDS: Carvedilol 3.125 MG TAB PO SCH ×2 (08:24→21:25)
[2023-05-03] MEDS: Lantiseptic Ointment 130 GM JAR TOP SCH ×2 (08:25→21:25)
[2023-05-03] MEDS: Megestrol Acetate 40 MG TAB PO SCH ×2 (08:25→21:24)
[2023-05-03] MEDS: Escitalopram Oxalate 10 mg Tablet PO SCH (08:25)
[2023-05-03] MEDS: Lidocaine 4% Patch TD SCH (08:25)
[2023-05-03] MEDS: Methimazole 5 MG TAB PO SCH (08:30)
[2023-05-03] MEDS: Exemestane 25 MG TAB PO SCH (21:25)
[2023-05-03] MEDS: Lisinopril 20 MG TAB PO SCH (21:25)
[2023-05-03] MEDS: Zolpidem Tartrate 5 MG TAB PO PRN (21:33)
[2023-05-03] MEDS: Acetaminophen 325 MG TAB PO PRN (21:34)
[2023-05-04] MEDS: Ipratropium/Albuterol 3 ML NEB NEB SCH ×4 (00:27→17:26)
[2023-05-04 07:38] LABS: #Basophils 0.1 thou/uL (0.0-0.2); #Eosinphils 0.3 thou/uL (0.0-0.7); #Lymphocytes 1.6 thou/uL (1.20-3.40); #Monocytes 0.8 thou/uL (0.11-0.59); #Neutrophils 5.5 thou/uL (1.40-6.50); %Basophils 0.9 % (0.0-1.0); %Eosinophils 3.9 % (0.0-10.0); %Lymphocytes 19.2 % (21.0-51.0); %Monocytes 9.6 % (0.0-10.0); %Neutrophils 66.4 % (42.0-75.0); Hemoglobin 9.5 g/dL (12.0-16.0); Mean Corpuscular HGB CONC 34.8 g/dL (32.0-36.0); Mean Corpuscular Hemoglobin 33.7 pg (27.0-31.0); Mean Platelet Volume 8.1 fL (7.4-10.4); Platelet Count 189 10x3/uL (130-400); Red Blood Cell (RBC) Count 2.81 mill/uL (4.20-5.40); White Blood Cell (WBC) Count 8.2 10x3/uL (4.8-10.8)
[2023-05-04 08:01] LABS: Anion Gap 11 mmol/L (10-20); BUN (Urea Nitrogen) 14 mg/dL (9.8-20.1); Calc. Creatinine Clearance 64 mL/min (70-130); Carbon Dioxide 21 mmol/L (23-31); Chloride 108 mmol/L (98-107); Estimated GFR 86; Glucose 86 mg/dL (83-110); Potassium 4.6 mmol/L (3.5-5.1); Sodium 135 mmol/L (136-145)
[2023-05-04] MEDS: Polyethylene Glycol 3350 17 GM Packet PO SCH (08:21)
[2023-05-04] MEDS: Sodium Chloride 1 GM TAB PO SCH ×3 (08:22→21:25)
[2023-05-04] MEDS: Cholecalciferol 1,000 UNITS (25 MCG) TAB PO SCH (08:22)
[2023-05-04] MEDS: Gabapentin 300 MG CAP PO SCH (08:22)
[2023-05-04] MEDS: CeleCOXIB 100 MG CAP PO SCH ×2 (08:23→21:26)
[2023-05-04] MEDS: Carvedilol 3.125 MG TAB PO SCH ×2 (08:23→21:28)
[2023-05-04] MEDS: Megestrol Acetate 40 MG TAB PO SCH ×2 (08:23→21:27)
[2023-05-04] MEDS: Methimazole 5 MG TAB PO SCH (08:24)
[2023-05-04] MEDS: Lantiseptic Ointment 130 GM JAR TOP SCH ×2 (08:27→21:29)
[2023-05-04] MEDS: Calcium Carbonate 600 MG + Vit D TAB PO SCH (08:27)
[2023-05-04] MEDS: Multivitamin W/ Minerals 1 TAB PO SCH (08:27)
[2023-05-04] MEDS: Clopidogrel Bisulfate 75 MG TAB PO SCH (08:28)
[2023-05-04] MEDS: Atorvastatin Calcium 40 MG TAB PO SCH (08:28)
[2023-05-04] MEDS: Escitalopram Oxalate 10 mg Tablet PO SCH (08:28)
[2023-05-04] MEDS: Lidocaine 4% Patch TD SCH (08:29)
[2023-05-04] MEDS: Senokot S 8.6-50 MG TAB PO SCH ×2 (08:30→21:27)
[2023-05-04] MEDS ORDERED: HYDROcodone/Acetaminophen 5/325 mg Tablet PO PRN (12:41)
[2023-05-04] MEDS: Exemestane 25 MG TAB PO SCH (21:26)
[2023-05-04] MEDS: Lisinopril 20 MG TAB PO SCH (21:28)
[2023-05-04] MEDS: Zolpidem Tartrate 5 MG TAB PO PRN (21:30)
[2023-05-05] MEDS: Ipratropium/Albuterol 3 ML NEB NEB SCH ×4 (00:46→18:30)
[2023-05-05] MEDS: Polyethylene Glycol 3350 17 GM Packet PO SCH (09:07)
[2023-05-05] MEDS: Calcium Carbonate 600 MG + Vit D TAB PO SCH (09:07)
[2023-05-05] MEDS: Sodium Chloride 1 GM TAB PO SCH ×3 (09:08→20:49)
[2023-05-05] MEDS: CeleCOXIB 100 MG CAP PO SCH ×2 (09:08→20:50)
[2023-05-05] MEDS: Methimazole 5 MG TAB PO SCH (09:08)
[2023-05-05] MEDS: Multivitamin W/ Minerals 1 TAB PO SCH (09:09)
[2023-05-05] MEDS: Senokot S 8.6-50 MG TAB PO SCH ×2 (09:09→20:50)
[2023-05-05] MEDS: Clopidogrel Bisulfate 75 MG TAB PO SCH (09:09)
[2023-05-05] MEDS: Cholecalciferol 1,000 UNITS (25 MCG) TAB PO SCH (09:09)
[2023-05-05] MEDS: Carvedilol 3.125 MG TAB PO SCH ×2 (09:09→20:50)
[2023-05-05] MEDS: Gabapentin 300 MG CAP PO SCH (09:09)
[2023-05-05] MEDS: Escitalopram Oxalate 10 mg Tablet PO SCH (09:09)
[2023-05-05] MEDS: Atorvastatin Calcium 40 MG TAB PO SCH (09:09)
[2023-05-05] MEDS: Lidocaine 4% Patch TD SCH (09:10)
[2023-05-05] MEDS: Lantiseptic Ointment 130 GM JAR TOP SCH ×2 (09:10→20:50)
[2023-05-05] MEDS: Megestrol Acetate 40 MG TAB PO SCH ×2 (09:10→20:50)
[2023-05-05] MEDS: Lisinopril 20 MG TAB PO SCH (20:49)
[2023-05-05] MEDS: Exemestane 25 MG TAB PO SCH (20:50)
[2023-05-05] MEDS: Zolpidem Tartrate 5 MG TAB PO PRN (20:50)
[2023-05-06] MEDS: Ipratropium/Albuterol 3 ML NEB NEB SCH ×4 (00:45→18:19)
[2023-05-06] MEDS: Polyethylene Glycol 3350 17 GM Packet PO SCH (08:38)
[2023-05-06] MEDS: Cholecalciferol 1,000 UNITS (25 MCG) TAB PO SCH (08:39)
[2023-05-06] MEDS: Lidocaine 4% Patch TD SCH (08:39)
[2023-05-06] MEDS: Calcium Carbonate 600 MG + Vit D TAB PO SCH (08:39)
[2023-05-06] MEDS: CeleCOXIB 100 MG CAP PO SCH ×2 (08:39→21:05)
[2023-05-06] MEDS: Atorvastatin Calcium 40 MG TAB PO SCH (08:39)
[2023-05-06] MEDS: Escitalopram Oxalate 10 mg Tablet PO SCH (08:40)
[2023-05-06] MEDS: Clopidogrel Bisulfate 75 MG TAB PO SCH (08:40)
[2023-05-06] MEDS: Multivitamin W/ Minerals 1 TAB PO SCH (08:40)
[2023-05-06] MEDS: Carvedilol 3.125 MG TAB PO SCH ×2 (08:40→21:06)
[2023-05-06] MEDS: Gabapentin 300 MG CAP PO SCH (08:40)
[2023-05-06] MEDS: Lantiseptic Ointment 130 GM JAR TOP SCH ×2 (08:41→21:05)
[2023-05-06] MEDS: Sodium Chloride 1 GM TAB PO SCH ×3 (08:41→21:03)
[2023-05-06] MEDS: Megestrol Acetate 40 MG TAB PO SCH ×2 (08:41→21:05)
[2023-05-06] MEDS: Methimazole 5 MG TAB PO SCH (08:41)
[2023-05-06] MEDS: Senokot S 8.6-50 MG TAB PO SCH ×2 (08:41→21:04)
[2023-05-06] MEDS: Exemestane 25 MG TAB PO SCH (21:05)
[2023-05-06] MEDS: Lisinopril 20 MG TAB PO SCH (21:05)
[2023-05-06] MEDS: Zolpidem Tartrate 5 MG TAB PO PRN (21:06)
[2023-05-07] MEDS: Ipratropium/Albuterol 3 ML NEB NEB SCH ×4 (01:12→19:31)
[2023-05-07] MEDS: Cholecalciferol 1,000 UNITS (25 MCG) TAB PO SCH (08:43)
[2023-05-07] MEDS: Calcium Carbonate 600 MG + Vit D TAB PO SCH (08:44)
[2023-05-07] MEDS: Carvedilol 3.125 MG TAB PO SCH ×2 (08:44→20:45)
[2023-05-07] MEDS: CeleCOXIB 100 MG CAP PO SCH ×2 (08:44→20:46)
[2023-05-07] MEDS: Atorvastatin Calcium 40 MG TAB PO SCH (08:44)
[2023-05-07] MEDS: Escitalopram Oxalate 10 mg Tablet PO SCH (08:45)
[2023-05-07] MEDS: Clopidogrel Bisulfate 75 MG TAB PO SCH (08:45)
[2023-05-07] MEDS: Gabapentin 300 MG CAP PO SCH (08:46)
[2023-05-07] MEDS: Lantiseptic Ointment 130 GM JAR TOP SCH ×2 (08:46→20:48)
[2023-05-07] MEDS: Methimazole 5 MG TAB PO SCH (08:47)
[2023-05-07] MEDS: Megestrol Acetate 40 MG TAB PO SCH ×2 (08:47→20:48)
[2023-05-07] MEDS: Lidocaine 4% Patch TD SCH (08:47)
[2023-05-07] MEDS: Multivitamin W/ Minerals 1 TAB PO SCH (08:47)
[2023-05-07] MEDS: Polyethylene Glycol 3350 17 GM Packet PO SCH (08:48)
[2023-05-07] MEDS: Senokot S 8.6-50 MG TAB PO SCH ×2 (08:48→20:45)
[2023-05-07] MEDS: Sodium Chloride 1 GM TAB PO SCH ×3 (08:48→20:45)
[2023-05-07] MEDS: Exemestane 25 MG TAB PO SCH (20:46)
[2023-05-07] MEDS: Lisinopril 20 MG TAB PO SCH (20:48)
[2023-05-07] MEDS: Zolpidem Tartrate 5 MG TAB PO PRN (20:52)
[2023-05-08] MEDS: Ipratropium/Albuterol 3 ML NEB NEB SCH ×2 (00:28→05:27)
[2023-05-08] MEDS ORDERED: Senokot S 8.6-50 MG TAB PO PRN (08:18)
[2023-05-08] MEDS: Lidocaine 4% Patch TD SCH (08:33)
[2023-05-08] MEDS: Sodium Chloride 1 GM TAB PO SCH ×3 (08:33→21:06)
[2023-05-08] MEDS: Atorvastatin Calcium 40 MG TAB PO SCH (08:35)
[2023-05-08] MEDS: Calcium Carbonate 600 MG + Vit D TAB PO SCH (08:35)
[2023-05-08] MEDS: Carvedilol 3.125 MG TAB PO SCH ×2 (08:36→21:05)
[2023-05-08] MEDS: CeleCOXIB 100 MG CAP PO SCH ×2 (08:36→21:04)
[2023-05-08] MEDS: Cholecalciferol 1,000 UNITS (25 MCG) TAB PO SCH (08:37)
[2023-05-08] MEDS: Clopidogrel Bisulfate 75 MG TAB PO SCH (08:37)
[2023-05-08] MEDS: Escitalopram Oxalate 10 mg Tablet PO SCH (08:38)
[2023-05-08] MEDS: Megestrol Acetate 40 MG TAB PO SCH ×2 (08:39→21:05)
[2023-05-08] MEDS: Lantiseptic Ointment 130 GM JAR TOP SCH ×2 (08:39→21:08)
[2023-05-08] MEDS: Gabapentin 300 MG CAP PO SCH (08:39)
[2023-05-08] MEDS: Methimazole 5 MG TAB PO SCH (08:39)
[2023-05-08] MEDS: Multivitamin W/ Minerals 1 TAB PO SCH (08:40)
[2023-05-08] MEDS ORDERED: Ipratropium/Albuterol 3 ML NEB NEB PRN (11:30)
[2023-05-08] MEDS: Lisinopril 20 MG TAB PO SCH (21:04)
[2023-05-08] MEDS: Exemestane 25 MG TAB PO SCH (21:05)
[2023-05-08] MEDS: Zolpidem Tartrate 5 MG TAB PO PRN (21:05)
[2023-05-09] MEDS: Lidocaine 4% Patch TD SCH (08:11)
[2023-05-09] MEDS: Acetaminophen 325 MG TAB PO PRN (08:12)
[2023-05-09] MEDS: Sodium Chloride 1 GM TAB PO SCH ×3 (08:12→21:58)
[2023-05-09] MEDS: Calcium Carbonate 600 MG + Vit D TAB PO SCH (08:12)
[2023-05-09] MEDS: Cholecalciferol 1,000 UNITS (25 MCG) TAB PO SCH (08:12)
[2023-05-09] MEDS: Carvedilol 3.125 MG TAB PO SCH ×2 (08:13→22:00)
[2023-05-09] MEDS: Atorvastatin Calcium 40 MG TAB PO SCH (08:13)
[2023-05-09] MEDS: Multivitamin W/ Minerals 1 TAB PO SCH (08:13)
[2023-05-09] MEDS: Megestrol Acetate 40 MG TAB PO SCH ×2 (08:13→22:00)
[2023-05-09] MEDS: Clopidogrel Bisulfate 75 MG TAB PO SCH (08:13)
[2023-05-09] MEDS: Escitalopram Oxalate 10 mg Tablet PO SCH (08:14)
[2023-05-09] MEDS: Gabapentin 300 MG CAP PO SCH (08:14)
[2023-05-09] MEDS: CeleCOXIB 100 MG CAP PO SCH ×2 (08:14→21:59)
[2023-05-09] MEDS: Methimazole 5 MG TAB PO SCH (08:16)
[2023-05-09] MEDS: Lantiseptic Ointment 130 GM JAR TOP SCH ×2 (08:17→22:01)
[2023-05-09] MEDS: Ondansetron ODT 4 MG TAB PO PRN (09:20)
[2023-05-09] MEDS: Exemestane 25 MG TAB PO SCH (21:59)
[2023-05-09] MEDS: Lisinopril 20 MG TAB PO SCH (22:00)
[2023-05-10] MEDS: Escitalopram Oxalate 10 mg Tablet PO SCH (08:14)
[2023-05-10] MEDS: Megestrol Acetate 40 MG TAB PO SCH ×2 (08:14→21:20)
[2023-05-10] MEDS: Calcium Carbonate 600 MG + Vit D TAB PO SCH (08:14)
[2023-05-10] MEDS: Sodium Chloride 1 GM TAB PO SCH ×3 (08:14→21:20)
[2023-05-10] MEDS: Methimazole 5 MG TAB PO SCH (08:14)
[2023-05-10] MEDS: Clopidogrel Bisulfate 75 MG TAB PO SCH (08:14)
[2023-05-10] MEDS: Cholecalciferol 1,000 UNITS (25 MCG) TAB PO SCH (08:15)
[2023-05-10] MEDS: CeleCOXIB 100 MG CAP PO SCH ×2 (08:15→21:18)
[2023-05-10] MEDS: Gabapentin 300 MG CAP PO SCH (08:15)
[2023-05-10] MEDS: Carvedilol 3.125 MG TAB PO SCH ×2 (08:15→21:18)
[2023-05-10] MEDS: Atorvastatin Calcium 40 MG TAB PO SCH (08:15)
[2023-05-10] MEDS: Lantiseptic Ointment 130 GM JAR TOP SCH ×2 (08:18→21:20)
[2023-05-10] MEDS: Lidocaine 4% Patch TD SCH (08:18)
[2023-05-10] MEDS: Multivitamin W/ Minerals 1 TAB PO SCH (08:18)
[2023-05-10] MEDS: Zolpidem Tartrate 5 MG TAB PO PRN (21:17)
[2023-05-10] MEDS: Lisinopril 20 MG TAB PO SCH (21:18)
[2023-05-10] MEDS: Exemestane 25 MG TAB PO SCH (21:20)
[2023-05-10] MEDS: Bisacodyl 5 MG TAB PO PRN (21:26)
[2023-05-11] MEDS: CeleCOXIB 100 MG CAP PO SCH ×2 (08:46→20:11)
[2023-05-11] MEDS: Calcium Carbonate 600 MG + Vit D TAB PO SCH (08:46)
[2023-05-11] MEDS: Clopidogrel Bisulfate 75 MG TAB PO SCH (08:47)
[2023-05-11] MEDS: Sodium Chloride 1 GM TAB PO SCH ×3 (08:47→20:10)
[2023-05-11] MEDS: Carvedilol 3.125 MG TAB PO SCH ×2 (08:47→20:11)
[2023-05-11] MEDS: Escitalopram Oxalate 10 mg Tablet PO SCH (08:47)
[2023-05-11] MEDS: Multivitamin W/ Minerals 1 TAB PO SCH (08:47)
[2023-05-11] MEDS: Cholecalciferol 1,000 UNITS (25 MCG) TAB PO SCH (08:47)
[2023-05-11] MEDS: Methimazole 5 MG TAB PO SCH (08:47)
[2023-05-11] MEDS: Atorvastatin Calcium 40 MG TAB PO SCH (08:48)
[2023-05-11] MEDS: Gabapentin 300 MG CAP PO SCH (08:48)
[2023-05-11] MEDS: Lidocaine 4% Patch TD SCH (08:48)
[2023-05-11] MEDS: Megestrol Acetate 40 MG TAB PO SCH ×2 (08:48→20:11)
[2023-05-11] MEDS: Lantiseptic Ointment 130 GM JAR TOP SCH ×2 (08:48→20:13)
[2023-05-11] MEDS ORDERED: Acetaminophen 325 MG TAB PO PRN (14:07)
[2023-05-11] MEDS ORDERED: Acetaminophen 650 MG Suppository PR PRN (14:07)
[2023-05-11] MEDS: Zolpidem Tartrate 5 MG TAB PO PRN (20:10)
[2023-05-11] MEDS: Polyethylene Glycol 3350 17 GM Packet PO PRN (20:10)
[2023-05-11] MEDS: Lisinopril 20 MG TAB PO SCH (20:10)
[2023-05-11] MEDS: Exemestane 25 MG TAB PO SCH (20:11)
[2023-05-12] MEDS: Polyethylene Glycol 3350 17 GM Packet PO PRN (08:34)
[2023-05-12] MEDS: Gabapentin 300 MG CAP PO SCH (08:34)
[2023-05-12] MEDS: Cholecalciferol 1,000 UNITS (25 MCG) TAB PO SCH (08:35)
[2023-05-12] MEDS: CeleCOXIB 100 MG CAP PO SCH ×2 (08:35→20:38)
[2023-05-12] MEDS: Escitalopram Oxalate 10 mg Tablet PO SCH (08:35)
[2023-05-12] MEDS: Calcium Carbonate 600 MG + Vit D TAB PO SCH (08:35)
[2023-05-12] MEDS: Carvedilol 3.125 MG TAB PO SCH ×2 (08:35→20:39)
[2023-05-12] MEDS: Lantiseptic Ointment 130 GM JAR TOP SCH ×2 (08:36→20:39)
[2023-05-12] MEDS: Methimazole 5 MG TAB PO SCH (08:36)
[2023-05-12] MEDS: Sodium Chloride 1 GM TAB PO SCH ×3 (08:36→20:38)
[2023-05-12] MEDS: Clopidogrel Bisulfate 75 MG TAB PO SCH (08:36)
[2023-05-12] MEDS: Megestrol Acetate 40 MG TAB PO SCH ×2 (08:36→20:39)
[2023-05-12] MEDS: Lidocaine 4% Patch TD SCH (08:36)
[2023-05-12] MEDS: Multivitamin W/ Minerals 1 TAB PO SCH (08:36)
[2023-05-12] MEDS: Exemestane 25 MG TAB PO SCH (20:38)
[2023-05-12] MEDS: Lisinopril 20 MG TAB PO SCH (20:39)
[2023-05-12] MEDS: Atorvastatin Calcium 40 MG TAB PO SCH (20:39)
[2023-05-12] MEDS: Zolpidem Tartrate 5 MG TAB PO PRN (20:41)
[2023-05-13] MEDS: Polyethylene Glycol 3350 17 GM Packet PO PRN (08:38)
[2023-05-13] MEDS: Lidocaine 4% Patch TD SCH (08:38)
[2023-05-13] MEDS: CeleCOXIB 100 MG CAP PO SCH ×2 (08:39→20:26)
[2023-05-13] MEDS: Bisacodyl 5 MG TAB PO PRN (08:39)
[2023-05-13] MEDS: Carvedilol 3.125 MG TAB PO SCH ×2 (08:40→20:27)
[2023-05-13] MEDS: Megestrol Acetate 40 MG TAB PO SCH ×2 (08:40→20:28)
[2023-05-13] MEDS: Cholecalciferol 1,000 UNITS (25 MCG) TAB PO SCH (08:40)
[2023-05-13] MEDS: Sodium Chloride 1 GM TAB PO SCH ×3 (08:40→20:28)
[2023-05-13] MEDS: Calcium Carbonate 600 MG + Vit D TAB PO SCH (08:40)
[2023-05-13] MEDS: Multivitamin W/ Minerals 1 TAB PO SCH (08:40)
[2023-05-13] MEDS: Clopidogrel Bisulfate 75 MG TAB PO SCH (08:41)
[2023-05-13] MEDS: Gabapentin 300 MG CAP PO SCH (08:41)
[2023-05-13] MEDS: Escitalopram Oxalate 10 mg Tablet PO SCH (08:41)
[2023-05-13] MEDS: Lantiseptic Ointment 130 GM JAR TOP SCH ×2 (08:46→20:29)
[2023-05-13] MEDS: Methimazole 5 MG TAB PO SCH (08:46)
[2023-05-13 08:49] VITALS: BMI 20.7
[2023-05-13] MEDS: Zolpidem Tartrate 5 MG TAB PO PRN (20:27)
[2023-05-13] MEDS: Lisinopril 20 MG TAB PO SCH (20:28)
[2023-05-13] MEDS: Exemestane 25 MG TAB PO SCH (20:28)
[2023-05-13] MEDS: Atorvastatin Calcium 40 MG TAB PO SCH (20:28)
[2023-05-14] MEDS: Sodium Chloride 1 GM TAB PO SCH ×3 (08:25→20:10)
[2023-05-14] MEDS: Cholecalciferol 1,000 UNITS (25 MCG) TAB PO SCH (08:25)
[2023-05-14] MEDS: Methimazole 5 MG TAB PO SCH (08:26)
[2023-05-14] MEDS: Clopidogrel Bisulfate 75 MG TAB PO SCH (08:26)
[2023-05-14] MEDS: Calcium Carbonate 600 MG + Vit D TAB PO SCH (08:26)
[2023-05-14] MEDS: Carvedilol 3.125 MG TAB PO SCH ×2 (08:26→20:10)
[2023-05-14] MEDS: Escitalopram Oxalate 10 mg Tablet PO SCH (08:26)
[2023-05-14] MEDS: Multivitamin W/ Minerals 1 TAB PO SCH (08:26)
[2023-05-14] MEDS: CeleCOXIB 100 MG CAP PO SCH ×2 (08:27→20:10)
[2023-05-14] MEDS: Gabapentin 300 MG CAP PO SCH (08:27)
[2023-05-14] MEDS: Lantiseptic Ointment 130 GM JAR TOP SCH ×2 (08:28→20:12)
[2023-05-14] MEDS: Megestrol Acetate 40 MG TAB PO SCH ×2 (08:32→20:09)
[2023-05-14] MEDS: Lidocaine 4% Patch TD SCH (08:32)
[2023-05-14] MEDS: Zolpidem Tartrate 5 MG TAB PO PRN (20:09)
[2023-05-14] MEDS: Exemestane 25 MG TAB PO SCH (20:10)
[2023-05-14] MEDS: Lisinopril 20 MG TAB PO SCH (20:10)
[2023-05-14] MEDS: Atorvastatin Calcium 40 MG TAB PO SCH (20:12)
[2023-05-15 07:19] VITALS: BP 155/65; TEMP 98.4
[2023-05-15] MEDS: Sodium Chloride 1 GM TAB PO SCH (08:19)
[2023-05-15] MEDS: Methimazole 5 MG TAB PO SCH (08:19)
[2023-05-15] MEDS: Carvedilol 3.125 MG TAB PO SCH (08:20)
[2023-05-15] MEDS: Escitalopram Oxalate 10 mg Tablet PO SCH (08:20)
[2023-05-15] MEDS: Cholecalciferol 1,000 UNITS (25 MCG) TAB PO SCH (08:20)
[2023-05-15] MEDS: Calcium Carbonate 600 MG + Vit D TAB PO SCH (08:21)
[2023-05-15] MEDS: Megestrol Acetate 40 MG TAB PO SCH (08:21)
[2023-05-15] MEDS: Gabapentin 300 MG CAP PO SCH (08:22)
[2023-05-15] MEDS: Clopidogrel Bisulfate 75 MG TAB PO SCH (08:23)
[2023-05-15] MEDS: Lidocaine 4% Patch TD SCH (08:23)
[2023-05-15] MEDS: CeleCOXIB 100 MG CAP PO SCH (08:23)
[2023-05-15] MEDS: Lantiseptic Ointment 130 GM JAR TOP SCH (08:24)
[2023-05-15] MEDS: Multivitamin W/ Minerals 1 TAB PO SCH (08:24)
[2023-05-15 13:39] LABS: Anion Gap 12 mmol/L (10-20); BUN (Urea Nitrogen) 12 mg/dL (9.8-20.1); Calc. Creatinine Clearance 47 mL/min (70-130); Calcium 9.7 mg/dL (7.8-10.44); Carbon Dioxide 20 mmol/L (23-31); Chloride 110 mmol/L (98-107); Estimated GFR 73; Glucose 109 mg/dL (83-110); Potassium 4.7 mmol/L (3.5-5.1); Sodium 137 mmol/L (136-145)
== END 2023-05-15 14:30 | disposition home or self-care (01) | DRG 560 ==
LOC: MADMS 18:18
PROVIDERS: ADMIT Family Medicine; ATTEND Family Medicine
DX: S22.029D Unspecified fracture of second thoracic vertebra, subsequent encounter for fracture with routine healing (principal); E22.2 Syndrome of inappropriate secretion of antidiuretic hormone; E44.0 Moderate protein-calorie malnutrition; R53.1 Weakness; M19.90 Unspecified osteoarthritis, unspecified site; E03.9 Hypothyroidism, unspecified; J44.9 Chronic obstructive pulmonary disease, unspecified; F17.210 Nicotine dependence, cigarettes, uncomplicated; W18.30XD Fall on same level, unspecified, subsequent encounter; R29.6 Repeated falls; K59.03 Drug induced constipation; D64.9 Anemia, unspecified; R53.81 Other malaise; E05.90 Thyrotoxicosis, unspecified without thyrotoxic crisis or storm; Z88.8 Allergy status to other drugs, medicaments and biological substances; Z91.041 Radiographic dye allergy status; S70.01XD Contusion of right hip, subsequent encounter; R63.0 Anorexia; Z68.20 Body mass index [BMI] 20.0-20.9, adult
CPT/HCPCS: 36415; 80048; 80053; 85025; 94640; J7620; Q0162; S0179

== ENCOUNTER 2023-05-29 19:43 | Emergency (ER) | payer MEDICARE, BC ==
[2023-05-29 20:42] LABS: Hemoglobin 12.3 g/dL (12.0-16.0); Mean Corpuscular HGB CONC 34.3 g/dL (32.0-36.0); Mean Corpuscular Hemoglobin 32.6 pg (27.0-31.0); Mean Corpuscular Volume 95.1 fl (78.0-98.0); Mean Platelet Volume 9.6 fL (7.4-10.4); Platelet Count 139 10x3/uL (130-400); RBC Distribution Width 12.9 % (11.5-14.5); Red Blood Cell (RBC) Count 3.78 mill/uL (4.20-5.40)
[2023-05-29 20:53] LABS: ALT (SGPT) 21 U/L (8-55); AST (SGOT) 21 U/L (5-34); Albumin 4.1 g/dL (3.4-4.8); Alkaline Phosphatase 79 U/L (40-110); Anion Gap 15 mmol/L (10-20); BUN (Urea Nitrogen) 28 mg/dL (9.8-20.1); Bilirubin, Total 0.5 mg/dL (0.2-1.2); CK (CPK) 104 U/L (29-168); Calc. Creatinine Clearance 0 mL/min (70-130); Calcium 10.6 mg/dL (7.8-10.44); Carbon Dioxide 21 mmol/L (23-31); Chloride 94 mmol/L (98-107); Estimated GFR 59; Globulin 2.2 g/dL (2.4-3.5); Glucose 91 mg/dL (83-110); Magnesium 1.8 mg/dL (1.6-2.6); Potassium 5.4 mmol/L (3.5-5.1); Protein, Total 6.3 g/dL (5.8-8.1); Sodium 125 mmol/L (136-145)
[2023-05-29 21:11] LABS: Band 2 % (5-11); Eosinophils 5 % (0-10); Lymphocytes 29 % (21-51); MDiff Complete? YES; Monocytes 8 % (0-10); Neutrophil 56 % (42-75); Platelet Adequacy Comment Appears Adequate
[2023-05-29 22:12] LABS: Bilirubin Negative (Negative); Blood, Urine Negative (Negative); Clarity Clear (Clear); Glucose, Urine (Dipstick) Negative (Negative); Ketone, Urine Negative (Negative); Leukocyte Small (Negative); Nitrite Negative (Negative); Protein, Urine (Dipstick) Negative (Neg-Trace); Specific Gravity, Urine 1.015 (1.005-1.030); Urobilinogen 0.2 mg/dL (Less than 2); pH, Urine 7.5 (5.0-9.0)
[2023-05-29] MEDS ORDERED: Melatonin 3 MG TAB PO SCH (22:15)
[2023-05-29 22:16] LABS: CAUTI Indications for Culture Alt mental st,lethar; RBC/HPF 0-3 HPF (0-3); Squamous Epithelial 0-3 HPF (0-3)
[2023-05-29 22:17] LABS: Bacteria/HPF 3+ HPF (None Seen); Urine Culture Reflex No No
[2023-05-29] MEDS ORDERED: cefTRIAXone (ROCEPHIN) 1 GM VIAL ONE (22:36)
[2023-05-29] MEDS ORDERED: Sodium Chloride 0.9% 100 ML ONE (22:36)
[2023-05-30 12:56] LABS: Potassium, Urine 31.2 mmol/L
== END 2023-05-30 00:17 | disposition short-term general hospital (02) ==
LOC: MADERS 19:43
DX: E87.1 Hypo-osmolality and hyponatremia (principal); E87.5 Hyperkalemia; N39.0 Urinary tract infection, site not specified; E05.90 Thyrotoxicosis, unspecified without thyrotoxic crisis or storm; E78.5 Hyperlipidemia, unspecified; I10 Essential (primary) hypertension; K21.9 Gastro-esophageal reflux disease without esophagitis; F17.210 Nicotine dependence, cigarettes, uncomplicated; Z79.899 Other long term (current) drug therapy
CPT/HCPCS: 81001; 82436; 82550; 83735; 83880; 84133; 84300; 84484; 85025; 93005; 96365; J0696; J7611

== ENCOUNTER 2024-05-16 14:56 | Emergency (ER) | payer MEDICARE, BC | END 2024-05-16 15:42 | disposition home or self-care (01) | LOC: MADERS 14:56 | DX: T63.461A Toxic effect of venom of wasps, accidental (unintentional), initial encounter (principal); F17.210 Nicotine dependence, cigarettes, uncomplicated; J44.9 Chronic obstructive pulmonary disease, unspecified; I10 Essential (primary) hypertension | CPT/HCPCS: 99282 ==

== ENCOUNTER 2024-11-16 14:21 | Emergency (ER) | payer MEDICARE, BC ==
[2024-11-16 15:25] LABS: Bilirubin Negative (Negative); Blood, Urine Trace (Negative); Clarity Slightly Cloudy (Clear); Glucose, Urine (Dipstick) Negative (Negative); Ketone, Urine Trace mg/dL (Negative); Leukocyte Large (Negative); Nitrite Negative (Negative); Protein, Urine (Dipstick) 30 mg/dL (Neg-Trace); RBC/HPF 0-3 HPF (0-3); Specific Gravity, Urine 1.025 (1.005-1.030); Urobilinogen 0.2 mg/dL (Less than 2); pH, Urine 5.5 (5.0-9.0)
[2024-11-16 15:26] LABS: Bacteria/HPF 4+ HPF (None Seen); CAUTI Indications for Culture Dysuria,urgency,freq; WBC/HPF Greater Than 50 HPF (0-3)
[2024-11-16 15:27] LABS: Urine Culture Reflex Yes Yes
[2024-11-16] MEDS ORDERED: HYDROcodone/Acetaminophen 5/325 mg Tablet ONE (15:33)
[2024-11-16] MEDS ORDERED: cefTRIAXone (ROCEPHIN) 1 GM VIAL ONE (15:34)
[2024-11-16 17:12] LABS: #Basophils 0.1 thou/uL (0.0-0.2); #Eosinophils 0.1 thou/uL (0.0-0.7); #Lymphocytes 1.9 thou/uL (1.20-3.40); #Monocytes 0.9 thou/uL (0.11-0.59); #Neutrophils 9.1 thou/uL (1.40-6.50); %Basophils 0.5 % (0.0-1.0); %Lymphocytes 15.4 % (21.0-51.0); %Monocytes 7.5 % (0.0-10.0); %Neutrophils 75.5 % (42.0-75.0); ALT (SGPT) 24 U/L (8-55); AST (SGOT) 24 U/L (5-34); Albumin 3.1 g/dL (3.4-4.8); Alkaline Phosphatase 70 U/L (40-110); Anion Gap 14 mmol/L (10-20); BUN (Urea Nitrogen) 18 mg/dL (9.8-20.1); Bilirubin, Total 0.5 mg/dL (0.2-1.2); Calc. Creatinine Clearance 0 mL/min (70-130); Carbon Dioxide 23 mmol/L (23-31); Chloride 97 mmol/L (98-107); Estimated GFR 68; Globulin 3.2 g/dL (2.4-3.5); Glucose 103 mg/dL (83-110); Hematocrit 38.6 % (36.0-47.0); Hemoglobin 12.5 g/dL (12.0-16.0); Hypochromia SLIGHT = 6-15 cells (100X) (0-5/hpf); MDiff Complete? YES; Mean Corpuscular HGB CONC 32.2 g/dL (32.0-36.0); Mean Corpuscular Hemoglobin 29.9 pg (27.0-31.0); Mean Corpuscular Volume 92.7 fl (78.0-98.0); Mean Platelet Volume 10.5 fL (7.4-10.4); Platelet Adequacy Comment Appears Decreased; Platelet Count 104 10x3/uL (130-400); Potassium 4.6 mmol/L (3.5-5.1); Protein, Total 6.3 g/dL (5.8-8.1); RBC Distribution Width 11.6 % (11.5-14.5); Red Blood Cell (RBC) Count 4.17 mill/uL (4.20-5.40); Sodium 129 mmol/L (136-145)
== END 2024-11-16 17:45 | disposition home or self-care (01) ==
LOC: MADERS 14:21
DX: N39.0 Urinary tract infection, site not specified (principal); E87.1 Hypo-osmolality and hyponatremia; E78.5 Hyperlipidemia, unspecified; I10 Essential (primary) hypertension; J44.9 Chronic obstructive pulmonary disease, unspecified; F17.210 Nicotine dependence, cigarettes, uncomplicated; Z79.02 Long term (current) use of antithrombotics/antiplatelets; Z79.899 Other long term (current) drug therapy
CPT/HCPCS: 80053; 81001; 85025; 87077; 87086; 96372; 99283; J0696; 36415

== ENCOUNTER 2024-11-21 16:17 | Emergency (ER) | payer MEDICARE, BC ==
[~2024-11-21 16:17] MED LIST changes: +Iopamidol 370 76% 100 ML VIAL ONE; -Sodium Chloride 0.9% 500 ML BAG ONE
[2024-11-21 17:03] LABS: #Basophils 0.1 thou/uL (0.0-0.2); #Eosinophils 0.1 thou/uL (0.0-0.7); #Monocytes 0.7 thou/uL (0.11-0.59); #Neutrophils 6.4 thou/uL (1.40-6.50); %Basophils 0.7 % (0.0-1.0); %Eosinophils 1.4 % (0.0-10.0); %Lymphocytes 21.3 % (21.0-51.0); %Monocytes 7.9 % (0.0-10.0); %Neutrophils 68.6 % (42.0-75.0); Hematocrit 40.6 % (36.0-47.0); Hemoglobin 12.9 g/dL (12.0-16.0); Mean Corpuscular HGB CONC 31.8 g/dL (32.0-36.0); Mean Corpuscular Hemoglobin 29.8 pg (27.0-31.0); Mean Corpuscular Volume 93.9 fl (78.0-98.0); Mean Platelet Volume 6.8 fL (7.4-10.4); Platelet Count 314 10x3/uL (130-400); RBC Distribution Width 11.8 % (11.5-14.5); Red Blood Cell (RBC) Count 4.33 mill/uL (4.20-5.40); White Blood Cell (WBC) Count 9.3 10x3/uL (4.8-10.8)
[2024-11-21 17:13] LABS: Bilirubin Negative (Negative); Blood, Urine Negative (Negative); Glucose, Urine (Dipstick) Negative (Negative); Ketone, Urine Trace mg/dL (Negative); Leukocyte Moderate (Negative); Nitrite Negative (Negative); Protein, Urine (Dipstick) 30 mg/dL (Neg-Trace); Specific Gravity, Urine 1.015 (1.005-1.030); Urobilinogen 0.2 mg/dL (Less than 2)
[2024-11-21 17:19] LABS: Clarity Hazy (Clear)
[2024-11-21 17:21] LABS: Bacteria/HPF 2+ HPF (None Seen); CAUTI Indications for Culture Dysuria,urgency,freq; RBC/HPF 0-3 HPF (0-3); Transitional Epithelial 0-3 HPF (None Seen)
[2024-11-21 17:22] LABS: Urine Culture Reflex Yes Yes
[2024-11-21 17:22] LABS: ALT (SGPT) 27 U/L (8-55); AST (SGOT) 22 U/L (5-34); Albumin 3.4 g/dL (3.4-4.8); Alkaline Phosphatase 78 U/L (40-110); Anion Gap 12 mmol/L (10-20); BUN (Urea Nitrogen) 16 mg/dL (9.8-20.1); Bilirubin, Total 0.5 mg/dL (0.2-1.2); Calc. Creatinine Clearance 0 mL/min (70-130); Calcium 9.4 mg/dL (7.8-10.44); Carbon Dioxide 23 mmol/L (23-31); Chloride 98 mmol/L (98-107); Estimated GFR 78; Glucose 113 mg/dL (83-110); Lipase 18 U/L (8-78); Potassium 3.9 mmol/L (3.5-5.1); Protein, Total 6.4 g/dL (5.8-8.1); Sodium 129 mmol/L (136-145)
[2024-11-21 17:23] LABS: Troponin I Less than 0.010 ng/mL (< 0.028)
[2024-11-21] MEDS ORDERED: diphenhydrAMINE 50 MG/ML VIAL ONE (17:36)
[2024-11-21] MEDS ORDERED: methylPREDNISolone Sod Succ/PF 125 MG/2 ML VIAL ONE (17:37)
[2024-11-21] MEDS ORDERED: Famotidine/PF 20 mg/2ml Vial ONE (17:37)
[2024-11-21] MEDS ORDERED: Nicotine 7 MG PATCH ONE (18:01)
[2024-11-21] MEDS ORDERED: LevoFLOXacin 750 mg/D5W 150 ml Premix Bag ONE (18:30)
[2024-11-21] MEDS ORDERED: HYDROcodone/Acetaminophen 5/325 mg Tablet ONE (20:37)
== END 2024-11-21 20:44 | disposition home or self-care (01) ==
LOC: MADERS 16:17
DX: N39.0 Urinary tract infection, site not specified (principal); E87.1 Hypo-osmolality and hyponatremia; K21.9 Gastro-esophageal reflux disease without esophagitis; I10 Essential (primary) hypertension; J44.9 Chronic obstructive pulmonary disease, unspecified; C50.919 Malignant neoplasm of unspecified site of unspecified female breast; F17.210 Nicotine dependence, cigarettes, uncomplicated; Z79.899 Other long term (current) drug therapy
CPT/HCPCS: 36415; 71275; 74176; 80053; 81001; 83605; 83690; 83880; 84484; 85025; 87040; 87086; 93005; 96365; 96366; 96375; J1200; J1956; J2919; J3490; Q9967

== ENCOUNTER 2024-11-30 11:55 | Emergency (ER) | payer MEDICARE, BC ==
[2024-11-30 12:45] LABS: Hematocrit 36.3 % (36.0-47.0); Hemoglobin 11.7 g/dL (12.0-16.0); Mean Corpuscular HGB CONC 32.4 g/dL (32.0-36.0); Mean Corpuscular Volume 92.6 fl (78.0-98.0); Mean Platelet Volume 7.1 fL (7.4-10.4); Platelet Count 223 10x3/uL (130-400); RBC Distribution Width 12.1 % (11.5-14.5); Red Blood Cell (RBC) Count 3.92 mill/uL (4.20-5.40); White Blood Cell (WBC) Count 14.1 10x3/uL (4.8-10.8)
[2024-11-30 12:48] LABS: ALT (SGPT) 24 U/L (8-55); AST (SGOT) 20 U/L (5-34); Albumin 2.9 g/dL (3.4-4.8); Alkaline Phosphatase 85 U/L (40-110); Anion Gap 11 mmol/L (10-20); BUN (Urea Nitrogen) 13 mg/dL (9.8-20.1); Bilirubin, Total 0.6 mg/dL (0.2-1.2); Calc. Creatinine Clearance 0 mL/min (70-130); Carbon Dioxide 21 mmol/L (23-31); Chloride 101 mmol/L (98-107); Estimated GFR 70; Globulin 2.8 g/dL (2.4-3.5); Glucose 114 mg/dL (83-110); Magnesium 1.7 mg/dL (1.6-2.6); Potassium 4.1 mmol/L (3.5-5.1); Protein, Total 5.7 g/dL (5.8-8.1); Sodium 129 mmol/L (136-145)
[2024-11-30 12:50] LABS: Band 4 % (5-11); Eosinophils 3 % (0-10); Lymphocytes 12 % (21-51); MDiff Complete? YES; Manual Diff?? YES; Monocytes 5 % (0-10); Neutrophil 76 % (42-75)
[2024-11-30 12:51] LABS: Platelet Adequacy Comment Appears Adequate; RBC Morph Comment Within Normal Limits
[2024-11-30 13:16] LABS: Bilirubin Negative (Negative); Blood, Urine Negative (Negative); Clarity Clear (Clear); Glucose, Urine (Dipstick) Negative (Negative); Ketone, Urine Negative (Negative); Leukocyte Negative (Negative); Nitrite Negative (Negative); Protein, Urine (Dipstick) Negative (Neg-Trace); Specific Gravity, Urine 1.025 (1.005-1.030); Urobilinogen 0.2 mg/dL (Less than 2)
[2024-11-30 13:23] LABS: CAUTI Indications for Culture Alt mental st,lethar; RBC/HPF 0-3 HPF (0-3); Squamous Epithelial 0-3 HPF (0-3); WBC/HPF 0-3 HPF (0-3)
[2024-11-30 13:24] LABS: Bacteria/HPF Rare-Few HPF (None Seen); Urine Culture Reflex No No
[2024-11-30] MEDS ORDERED: diphenhydrAMINE 50 MG/ML VIAL ONE (13:41)
[2024-11-30] MEDS ORDERED: Famotidine/PF 20 mg/2ml Vial ONE (13:42)
[2024-11-30] MEDS ORDERED: methylPREDNISolone Sod Succ/PF 125 MG/2 ML VIAL ONE (13:42)
== END 2024-11-30 16:18 | disposition home or self-care (01) ==
LOC: MADERS 11:55
DX: E05.90 Thyrotoxicosis, unspecified without thyrotoxic crisis or storm (principal); N28.1 Cyst of kidney, acquired; R91.8 Other nonspecific abnormal finding of lung field; D35.01 Benign neoplasm of right adrenal gland; E87.1 Hypo-osmolality and hyponatremia; I70.8 Atherosclerosis of other arteries; F17.210 Nicotine dependence, cigarettes, uncomplicated; I10 Essential (primary) hypertension; K21.9 Gastro-esophageal reflux disease without esophagitis; E78.5 Hyperlipidemia, unspecified; J44.9 Chronic obstructive pulmonary disease, unspecified; E03.9 Hypothyroidism, unspecified; G62.9 Polyneuropathy, unspecified; M19.90 Unspecified osteoarthritis, unspecified site; C50.919 Malignant neoplasm of unspecified site of unspecified female breast; G47.30 Sleep apnea, unspecified; Z79.899 Other long term (current) drug therapy
CPT/HCPCS: 74177; 81001; 83735; 84439; 93005; 94760; J1200; J2919; J3490; Q9967; 80053; 84443; 85025; 96374; 96375

== ENCOUNTER 2025-10-05 13:59 | Outpatient (CLI) | payer MEDICARE, BC | END 2025-10-05 14:00 | disposition home or self-care (01) | LOC: MADRAD 13:59 | PROVIDERS: ATTEND Pain Medicine Pain Medicine | DX: M70.61 Trochanteric bursitis, right hip (principal) | CPT/HCPCS: 72190 ==